=== PATIENT | female | born 1990 | race Caucasian/White ===

== ENCOUNTER 2018-02-02 10:05 | Outpatient (CLI) | payer OTHER | END 2018-02-02 17:00 | disposition home or self-care (01) | LOC: SONOGRAMA 10:05 | DX: Z34.01 Encounter for supervision of normal first pregnancy, first trimester (principal) ==

== ENCOUNTER 2018-08-29 15:15 | Inpatient (IN) | payer OTHER ==
[~2018-08-29] VITALS: Ht 162.6 cm; Wt 75.7 kg
[2018-09-13] MEDS ORDERED: PRENATAL TABLE1 EAC1 PO (08:37)
== END 2018-09-15 13:15 | DRG 807 ==
LOC: OB/GYN 15:15 → LDR 09-13 06:32 → OB/GYN 09-13 23:43
PROVIDERS: ADMIT Obstetrics & Gynecology
PROC: 10E0XZZ Delivery of Products of Conception, External Approach (ICD-10-PCS; principal; 2018-09-13)
PROC: 4A1HXCZ Monitoring of Products of Conception, Cardiac Rate, External Approach (ICD-10-PCS; 2018-09-13)
PROC: 3E033VJ Introduction of Other Hormone into Peripheral Vein, Percutaneous Approach (ICD-10-PCS; 2018-09-13)
DX: O80 Encounter for full-term uncomplicated delivery (principal); Z37.0 Single live birth; Z3A.39 39 weeks gestation of pregnancy

== ENCOUNTER 2018-10-06 13:14 | Outpatient (CLI) | payer OTHER ==
[~2018-10-06 13:14] MED LIST: PRENATAL TABLE1 EAC1 PO
== END 2018-10-06 15:20 | disposition home or self-care (01) ==
LOC: RAD 13:14
DX: G56.03 Carpal tunnel syndrome, bilateral upper limbs (principal)

== ENCOUNTER 2020-10-01 11:04 | Inpatient (IN) | payer OTHER ==
[~2020-10-01] VITALS: Ht 165.1 cm; Wt 70.3 kg
== END 2020-10-03 13:28 | disposition home or self-care (01) | DRG 807 ==
LOC: SURG-SUITE 11:04 → LDR 11:04 → SURG-SUITE 17:07
PROVIDERS: ADMIT Obstetrics & Gynecology; ATTEND Obstetrics & Gynecology
PROC: 10E0XZZ Delivery of Products of Conception, External Approach (ICD-10-PCS; principal; 2020-10-01)
PROC: 4A1HXFZ Monitoring of Products of Conception, Cardiac Rhythm, External Approach (ICD-10-PCS; 2020-10-01)
DX: O42.02 Full-term premature rupture of membranes, onset of labor within 24 hours of rupture (principal); Z37.0 Single live birth; Z3A.38 38 weeks gestation of pregnancy; Z20.822 Contact with and (suspected) exposure to COVID-19